=== PATIENT | male | born 1995 | race Caucasian/White ===

== ENCOUNTER 2022-10-18 08:23 | Emergency (ER) | payer MEDICAID ==
[~2022-10-18] VITALS: Ht 182.9 cm; Wt 118.2 kg
[2022-10-18] MEDS ORDERED: ALBU18HF12 IH (09:46)
[2022-10-18] MEDS ORDERED: BENZ-227 PO (09:46)
[2022-10-18 10:24] LABS: COVID AG,FIA SOURCE NASAL SWAB
[2022-10-18 10:53] LABS: INFLUENZA TYPE A NEGATIVE FOR TYPE A (NEGATIVE); INFLUENZA TYPE B NEGATIVE FOR TYPE B (NEGATIVE)
[2022-10-18 12:18] VITALS: BP 126/82
== END 2022-10-18 12:19 | disposition home or self-care (01) ==
LOC: EMS 08:28
DX: J40 Bronchitis, not specified as acute or chronic (principal); Z20.822 Contact with and (suspected) exposure to COVID-19
CPT/HCPCS: 71046; 87804; 99284

== ENCOUNTER 2022-10-23 13:07 | Emergency (ER) | payer MEDICAID ==
[~2022-10-23] VITALS: Ht 185.4 cm; Wt 118.2 kg
[~2022-10-23 13:07] MED LIST: ALBU18HF12 IH; BENZ-227 PO
[2022-10-23 13:08] VITALS: TEMP 98.6
[2022-10-23] MEDS ORDERED: KETOROLAC TROMETHAMINE 30 MG/ML VIAL IM ONE (14:15)
[2022-10-23] MEDS ORDERED: AZIT250T9 PO (15:00)
[2022-10-23 15:21] VITALS: BP 125/81; PULSE 97; RESP 20
== END 2022-10-23 15:29 | disposition home or self-care (01) ==
LOC: EMS 13:25
DX: J40 Bronchitis, not specified as acute or chronic (principal); M94.0 Chondrocostal junction syndrome [Tietze]
CPT/HCPCS: 99283; 71046; 93005; 96372; J1885